=== PATIENT | female | born 2000 | race Caucasian/White ===

== ENCOUNTER 2018-12-19 10:44 | Outpatient (REF) | payer OTHER, SELFPAY ==
[2018-12-19 18:50] LABS: HCT 38.2 % (36.0-46.0); HGB 12.5 g/dL (12.0-15.5); Mean Corp. HGB Concentration 32.7 g/dL (32.0-36.0); Mean Corpuscular Hemoglobin 27.5 pg (27.0-33.0); Mean Corpuscular Volume 84.1 fL (80-95); Mean Platelet Volume 10.3 fL (8.0-11.0); Platelet Count 337 x1000/uL (130-400); RBC 4.54 m/cumm (4.00-5.20); RBC Distribution Width 13.3 % (11.7-14.6); White Blood Cell Count 14.26 k/cumm (4.4-10.8)
[2018-12-19 18:58] LABS: Mono Screening Negative (Negative)
== END 2018-12-19 11:04 ==
LOC: NCHCN 10:44
PROVIDERS: PCP Nurse Practitioner Family; Visit Provider Nurse Practitioner Family
DX: J02.9 Acute pharyngitis, unspecified (principal)
CPT/HCPCS: 85027; 86308; 87070